=== PATIENT | male | born 1975 | race Hispanic/Latino ===

== ENCOUNTER 2017-03-28 06:57 | Emergency (ER) | payer OTHER ==
[2017-03-28] MEDS: NS 1,000 ML IV (07:44)
[2017-03-28 07:56] LABS: BASO % 0.4 % (0.0-1.0); EOS # 0.2 10^3/uL (0.0-0.50); EOS % 2.4 % (0.0-3.0); HEMATOCRIT 42.7 % (42.0-52.0); HEMOGLOBIN 15.2 g/dl (14.0-18.0); IMMATURE GRANULOCYTE % 0.4 % (0-0); MEAN CORPUSCULAR HGB CONC 35.6 g/dl (32.0-36.5); MEAN CORPUSCULAR VOLUME 81.3 fl (80.0-96.0); MONO # 0.6 10^3/uL (0.0-0.8); MONO % 6.4 % (0.0-5.0); NEUTROPHILS # 6.8 10^3/uL (1.8-7.7); NEUTROPHILS % 69.4 % (36.0-66.0); PLATELET COUNT, AUTOMATED 289 10^3/uL (150-450); RED BLOOD COUNT 5.25 10^6/uL (4.30-6.10); RED CELL DISTRIBUTION WIDTH 13.5 % (11.5-14.5); WHITE BLOOD COUNT 9.7 10^3/uL (4.0-10.0)
[2017-03-28 08:16] LABS: ANION GAP 9 MEQ/L (8-16); BLOOD UREA NITROGEN 12 MG/DL (7-18); CALCIUM LEVEL 8.9 MG/DL (8.5-10.1); CARBON DIOXIDE LEVEL 24 MEQ/L (21-32); CHLORIDE LEVEL 104 MEQ/L (98-107); CREATININE FOR GFR 0.68 MG/DL (0.70-1.30); GLOMERULAR FILTRATION RATE > 60.0 (>60); GLUCOSE, FASTING 112 MG/DL (70-100); POTASSIUM SERUM 4.2 MEQ/L (3.5-5.1); SODIUM LEVEL 137 MEQ/L (136-145)
[2017-03-28 08:18] LABS: INFLUENZA A AMPLIFICATION NEGATIVE (NEGATIVE); INFLUENZA B AMPLIFICATION NEGATIVE (NEGATIVE)
== END 2017-03-28 08:52 | disposition home or self-care (01) ==
LOC: M ED 06:57
DX: K13.79 Other lesions of oral mucosa (principal); J32.9 Chronic sinusitis, unspecified; R06.02 Shortness of breath; R68.83 Chills (without fever); Z98.890 Other specified postprocedural states; Z79.2 Long term (current) use of antibiotics
CPT/HCPCS: 70450

== ENCOUNTER 2018-03-07 20:32 | Emergency (ER) | payer OTHER ==
[~2018-03-07] VITALS: Ht 170.2 cm; Wt 86.4 kg
[~2018-03-07 20:32] MED LIST: AUGM875T28 PO; FLON1SPR; IBUP1TAB7 PO; METH4TAB28 PO; OXYC1TAB23 PO; SUDA30TA8 PO
[2018-03-07 22:32] LABS: INFLUENZA A AMPLIFICATION NEGATIVE (NEGATIVE); INFLUENZA B AMPLIFICATION NEGATIVE (NEGATIVE)
[2018-03-07] MEDS ORDERED: AUGM875T28 PO (23:35)
[2018-03-07] MEDS ORDERED: FLON1SPR NARES (23:36)
[2018-03-07 23:41] VITALS: BP 142/96
--- NOTE | 2018-03-08 01:33 | REP ---
Clinical: Acute shortness of breath . Comparison: None . Technique: PA and lateral. Findings: The mediastinum and cardiac silhouette are normal. The lung [place] are clear and without acute consolidation, effusion, or pneumothorax. The skeletal structures are intact and normal. Impression: 1. No acute cardiopulmonary process. Electronically Signed by Torito De Jesus MD 03/08/2018 01:25 A
== END 2018-03-07 23:56 | disposition home or self-care (01) ==
LOC: M ED 20:32
DX: H66.93 Otitis media, unspecified, bilateral (principal); J32.0 Chronic maxillary sinusitis